=== PATIENT | male | born 1970 | race Caucasian/White ===

== ENCOUNTER 2016-08-27 12:51 | Emergency (ER) | payer OTHER, MEDICAID ==
--- NOTE | 2016-08-27 13:09 | EDPHY ---
HPI/HX/ROS/PE/MDM Narrative: CHIEF COMPLAINT: M1, hallucinating, "My extrasensory perceptions are out-of-wack " HPI: This is a 46 y/o male, with a history of schizoaffective and bipolar disorder, arriving on an M1 from the crisis center complaining of auditory hallucinations and suicidal ideations. Per M1 paperwork, he has a history of previous psychiatric hospitalizations and presented voluntarily to their clinic today for help. Paperwork states he has "persecutory delusions such as 'space people tapping into' his head." He endorses similar paranoid and persecuting auditory hallucinations to me. He says, "the [place] are really screwing with me through [facility]." He expressed to staff that he will kill himself if he can't get the hallucinations to stop. He denies drug or alcohol use. No recent illness or injury. He reports he is taking his medications regularly. He has been calm and cooperative since arrival here. REVIEW OF SYSTEMS: Aside from elements discussed in the HPI, a comprehensive 10-point review of systems was reviewed and is negative. PMH: Schizoaffective disorder, bipolar disorder SOCIAL HISTORY: Denies drug or alcohol abuse. PHYSICAL EXAM: General:Patient is alert, in no acute distress. ENT:Eyes are normal to inspection. ENT inspection normal. Neck: Normal inspection. Full range of motion. Respiratory:No respiratory distress. Breath sounds normal bilaterally. Cardiovascular: Regular rate and rhythm. Strong peripheral pulses. Normal cap refill. Abdomen:The abdomen is nontender to palpation. There are no peritoneal signs. There are normal bowel sounds. Back: Normal to inspection. No tenderness to palpation. Skin: Normal color. No rash. Warm and dry. Extremities: Normal appearance. Full range of motion. Neuro: Oriented x3. Normal motor function. Normal sensory function. (Jake Villanueva) ED Course: Standard psychiatric labs and UA ordered. Plan for mental health evaluation once medically clear. 1406: Patient is medically clear and awaiting evaluation. 2000: Patient has been seen and evaluated by Mental Health - their psychiatrist would like patient to be observed in the ED until morning to see if symptoms are primarily secondary to meth use. (Jake Villanueva) August 28, 2016. I assumed care of this patient from Dr. Jennifer Guerra at 7:00 a.m.. He has been cooperative while under my care. He was re-evaluated and placement has been arranged at [facility]. I have signed the EMTALA form. Transportation will be arranged. (Rashida Mathur) MDM: The patient has been stable during my shift. He was methamphetamine positive, thus he is awaiting a psychiatric evaluation currently. Care will be transferred to Dr. Mathur at 7:00 a.m.. (Jennifer Guerra) Care transferred to [facility] at 9:[address] Jake Villanueva. Patient is hallucinating with acute psychosis. He ingested methamphetamine recently. We are waiting for 12 hour clearance before mental health evaluation. Care transferred to Dr. Guerra at 11:00 p.m.. (Rashid Bower) - Data Points Laboratory Results: Laboratory Results 08/27/16 13:25 08/27/16 13:25 Medications Given: Discontinued Medications Ibuprofen (Motrin) 600 mg PO EDNOW ONE Stop: 08/28/16 10:44 Last Admin: 08/28/16 10:40 Dose: 600 mg Lorazepam (Ativan) 1 mg PO EDNOW ONE Stop: 08/27/16 20:11 Last Admin: 08/27/16 20:47 Dose: 1 mg General Time Seen by Provider: 08/27/16 12:58 Initial Vital Signs: Initial Vital Signs Temperature (C) 36.6 C 08/27/16 13:09 Heart Rate 88 08/27/16 13:09 Respiratory Rate 18 08/27/16 13:09 Blood Pressure 129/63 H 08/27/16 13:09 O2 Sat (%) 100 08/27/16 13:09 O2 Delivery Mode Room Air Allergies/Adverse Reactions: No Known Allergies Allergy (Unverified 08/27/16 14:44) Home Medications: Medication Instructions Recorded CLONAZEPAM 08/27/16 Depakote 08/27/16 Navane 1mg (*) 08/27/16 traZODone 08/27/16 Departure - Departure Disposition: Other Psych, Not [facility] Clinical Impression: Suicidal ideation, Auditory hallucinations, Schizoaffective disorder Condition: Fair Referrals: Patient,NotPresent [Unknown] - As per Instructions Report Scribed for: Jake Villanueva Report Scribed by: Apple Ayoub Date of Report: 08/27/16 Time of Report: 12:59 Physician Review and Approval Statement: Portions of this note were transcribed by an ED scribe. I personally performed the history, physical exam, and medical decision making; and confirm the accuracy of the information in the transcribed note.
[2016-08-27 13:42] LABS: % IMMATURE GRANULYOCYTES 0.4 % (0.0-1.1); ABSOLUTE IMMATURE GRANULOCYTES 0.02 10^3/uL (0.00-0.10); ADD DIFF? NO; ADD MORPH? NO; ADD SCAN? NO; ATYPICAL LYMPHOCYTE FLAG 0 (0-99); FRAGMENT RBC FLAG 0 (0-99); HEMATOCRIT 38.2 % (40.0-51.0); HEMOGLOBIN 13.2 g/dL (13.7-17.5); LEFT SHIFT FLG 10 (0-99); LIPEMIA HEMOLYSIS FLAG 90 (0-99); MEAN CELL HEMOGLOBIN 30.3 pg (27.9-34.1); MEAN CELL HEMOGLOBIN CONCENTR. 34.6 g/dL (32.4-36.7); MEAN CELL VOLUME 87.6 fL (81.5-99.8); MEAN PLATELET VOLUME 9.4 fL (8.7-11.7); PLATELET CLUMPS FLAG 0 (0-99); PLATELET COUNT 196 10^3/uL (150-400); RED BLOOD CELL COUNT 4.36 10^6/uL (4.40-6.38); RED CELL DISTRIBUTION WIDTH 13.7 % (11.5-15.2)
[2016-08-27 14:05] LABS: ANION GAP 8 mEq/L (8-16); CALCIUM 8.7 mg/dL (8.5-10.4); CARBON DIOXIDE 25 mEq/l (22-31); CHLORIDE 99 mEq/L (97-110); CREATININE 0.6 mg/dL (0.7-1.3); ETHANOL SERUM < 10 mg/dL (0-10); GLOMERULAR FILTRATION RATE > 60; GLUCOSE 87 mg/dL (70-100); POTASSIUM 3.9 mEq/L (3.5-5.2); SODIUM 132 mEq/L (134-144)
[2016-08-27 20:06] LABS: ALBUMIN 3.1 g/dL (3.5-5.0); BILIRUBIN,TOTAL 0.5 mg/dL (0.1-1.4); BILIRUBIN-CONJUGATED 0.2 mg/dL (0.0-0.5); BILIRUBIN-UNCONJUGATED 0.3 mg/dL (0.0-1.1)
[2016-08-27] MEDS ORDERED: LORazepam 1 MG TAB PO ONE (20:10)
[2016-08-28] MEDS ORDERED: IBUPROFEN 600 MG TAB PO ONE ×2 (10:39→10:43)
[2016-08-28 15:15] VITALS: BP 125/100; PULSE 89; RESP 16; TEMP 97.9; O2SAT 97
== END 2016-08-28 15:27 ==
DX: F25.9 Schizoaffective disorder, unspecified (principal); R45.851 Suicidal ideations
CPT/HCPCS: 80305; G0480

== ENCOUNTER 2016-10-08 15:19 | Emergency (ER) | payer OTHER, MEDICAID ==
--- NOTE | 2016-10-08 15:28 | EDPHY ---
H & P Time Seen by Provider: 10/08/16 15:20 HPI/ROS: CHIEF COMPLAINT: Hallucinations, paranoia HISTORY OF PRESENT ILLNESS: The patient is a 46-year-old man with a history of schizoaffective disorder on Depakote comes [facility] on an M1 hold. He states that he is concerned that satellites or penetrating his brain in that their mother's limbs controlling his thoughts. He has been admitted before for similar symptoms. He denies any recent alcohol or drug abuse. He denies any recent illness. REVIEW OF SYSTEMS: Constitutional: denies: chills, fever, recent illness, recent injury EENTM: denies: blurred vision, double vision, nose congestion Respiratory: denies: cough, shortness of breath Cardiac: denies: chest pain, irregular heart rate, lightheadedness, palpitations Gastrointestinal/Abdominal: denies: abdominal pain, diarrhea, nausea, vomiting, blood streaked stools Genitourinary: denies: dysuria, frequency, hematuria, pain Musculoskeletal: denies: joint pain, muscle pain Skin: denies: lesions, rash, jaundice, bruising Neurological: denies: headache, numbness, paresthesia, tingling, dizziness, weakness Hematologic/Lymphatic: denies: blood clots, easy bleeding, easy bruising Immunologic/allergic: denies: HIV/AIDS, transplant EXAM: GENERAL: Well-appearing, well-nourished and in no acute distress. HEAD: Atraumatic, normocephalic. EYES: Pupils equal round and reactive to light, extraocular movements intact, sclera anicteric, conjunctiva are normal. ENT: TMs normal, nares patent, oropharynx clear without exudates. Moist mucous membranes. NECK: Normal range of motion, supple without lymphadenopathy or JVD. LUNGS: Breath sounds clear to auscultation bilaterally and equal. No wheezes rales or rhonchi. HEART: Regular rate and rhythm without murmurs, rubs or gallops. ABDOMEN: Soft, nontender, normoactive bowel sounds. No guarding, no rebound. No masses appreciated. BACK: No CVA tenderness, no spinal tenderness, step-offs or deformities EXTREMITIES: Normal range of motion, no pitting or edema. No clubbing or cyanosis. NEUROLOGICAL: Cranial nerves II through XII grossly intact. Normal speech, normal gait. 5/5 strength, normal movement in all extremities, normal sensation PSYCH: Conversant, normal rate of speech, paranoid and delusional thought pattern SKIN: Warm, dry, normal turgor, no visible rashes or lesions. Source: Patient Exam Limitations: No limitations - Medical/Surgical History Hx Asthma: No Hx Chronic Respiratory Disease: No Hx Diabetes: No Hx Cardiac Disease: No Hx Renal Disease: No Hx Cirrhosis: No Hx Alcoholism: No Hx HIV/AIDS: No Hx Splenectomy or Spleen Trauma: No Other PMH: PMH: bipolar, schizoaffective - Family History Significant Family History: No pertinent family hx - Social History Smoking Status: Heavy smoker Alcohol Use: Sober Drug Use: None Constitutional: Initial Vital Signs Temperature (C) 36.5 C 10/08/16 15:28 Heart Rate 72 10/08/16 15:28 Respiratory Rate 18 10/08/16 15:28 Blood Pressure 140/91 H 10/08/16 15:28 O2 Sat (%) 99 10/08/16 15:28 O2 Delivery Mode Room Air Allergies/Adverse Reactions: No Known Allergies Allergy (Unverified 08/27/16 14:44) Home Medications: Medication Instructions Recorded CLONAZEPAM 08/27/16 Depakote 08/27/16 Navane 1mg (*) 08/27/16 traZODone 08/27/16 Medical Decision Making ED Course/Re-evaluation: The patient has been accepted at [facility] by Dr. hernandes. Transfer paperwork completed. Differential Diagnosis: Partial list of the Differential diagnosis considered include but were not limited to; schizoaffective, bipolar, substance abuse and although unlikely based on the history and physical exam, I also considered head injury, infection. - Data Points Laboratory Results: Laboratory Results 10/08/16 15:35 10/08/16 15:35 Medications Given: Discontinued Medications Lorazepam (Ativan) 1 mg PO EDNOW ONE Stop: 10/08/16 17:15 Last Admin: 10/08/16 17:16 Dose: 1 mg Nicotine Polacrilex (Nicorette) 2 mg B PRN PRN PRN Reason: PT REQUEST Stop: 04/06/17 23:24 Last Admin: 10/08/16 23:26 Dose: 2 mg Olanzapine (Olanzapine) 5 mg PO ONCE ONE Stop: 10/08/16 17:16 Last Admin: 10/08/16 17:16 Dose: 5 mg Olanzapine (Olanzapine) 5 mg PO ONCE ONE Stop: 10/08/16 19:27 Last Admin: 10/08/16 18:50 Dose: 5 mg Departure - Departure Disposition: Other Psych, Not [facility] Clinical Impression: Acute psychosis Condition: Fair Referrals: Patient,NotPresent [Unknown] - As per Instructions
[2016-10-08 15:43] LABS: % IMMATURE GRANULYOCYTES 0.3 % (0.0-1.1); ABSOLUTE IMMATURE GRANULOCYTES 0.02 10^3/uL (0.00-0.10); ADD DIFF? NO; ADD MORPH? NO; ADD SCAN? NO; ATYPICAL LYMPHOCYTE FLAG 50 (0-99); FRAGMENT RBC FLAG 0 (0-99); HEMATOCRIT 42.6 % (40.0-51.0); HEMOGLOBIN 14.2 g/dL (13.7-17.5); LEFT SHIFT FLG 0 (0-99); LIPEMIA HEMOLYSIS FLAG 80 (0-99); MEAN CELL HEMOGLOBIN 29.5 pg (27.9-34.1); MEAN CELL HEMOGLOBIN CONCENTR. 33.3 g/dL (32.4-36.7); MEAN CELL VOLUME 88.4 fL (81.5-99.8); MEAN PLATELET VOLUME 9.2 fL (8.7-11.7); PLATELET CLUMPS FLAG 30 (0-99); PLATELET COUNT 266 10^3/uL (150-400); RED BLOOD CELL COUNT 4.82 10^6/uL (4.40-6.38); RED CELL DISTRIBUTION WIDTH 14.5 % (11.5-15.2)
[2016-10-08 15:59] LABS: ANION GAP 12 mEq/L (8-16); CALCIUM 9.3 mg/dL (8.5-10.4); CARBON DIOXIDE 23 mEq/l (22-31); CHLORIDE 101 mEq/L (97-110); CREATININE 0.7 mg/dL (0.7-1.3); ETHANOL SERUM < 10 mg/dL (0-10); GLOMERULAR FILTRATION RATE > 60; GLUCOSE 78 mg/dL (70-100); POTASSIUM 5.2 mEq/L (3.5-5.2); SODIUM 136 mEq/L (134-144); SPECIMEN HEMOLYSIS 191
[2016-10-08] MEDS ORDERED: OLANZapine DISINTEGR 5 MG TAB ONE ×2 (17:12→18:31)
[2016-10-08] MEDS ORDERED: LORazepam 1 MG TAB ONE (17:12)
[2016-10-08] MEDS ORDERED: LORazepam 1 MG TAB PO ONE (17:14)
[2016-10-08] MEDS ORDERED: OLANZapine 5 MG TAB PO ONE ×2 (17:15→19:26)
[2016-10-08 22:31] VITALS: BP 122/70; PULSE 63; RESP 16; TEMP 98.1; O2SAT 97
[2016-10-08] MEDS ORDERED: NICOTINE POLACRILEX 2 MG GUM B ONE (23:18)
[2016-10-08] MEDS ORDERED: NICOTINE POLACRILEX 2 MG GUM B PRN (23:25)
== END 2016-10-08 23:28 ==
LOC: EDUNIT#
DX: F23 Brief psychotic disorder (principal); F17.200 Nicotine dependence, unspecified, uncomplicated
CPT/HCPCS: 80305; G0480